=== PATIENT | male | born 1985 | race Caucasian/White ===

== ENCOUNTER 2022-01-17 04:22 | Emergency (ER) | payer SELFPAY ==
[2022-01-17 04:24] VITALS: BP 137/81; PULSE 75; RESP 20; TEMP 36.2; O2SAT 98; BMI 26.6
[2022-01-17 05:06] VITALS: BP 149/88; PULSE 79; RESP 20; O2SAT 99
--- NOTE | 2022-01-17 05:44 | ED_ITS ---
HPI - Dental/Oral General Chief complaint: Dental/Oral Stated complaint: Dental pain Time Seen by Provider: 01/17/22 05:43 Source: patient Mode of arrival: ambulatory Limitations: no limitations History of Present Illness HPI Narrative: Patient with dental caries been having more pain and left 1st lower molar with facial swelling for last few days no fever no chills patient able to open his mouth planning to see a dentist soon Related Data Previous Rx's Medication Instructions Recorded amoxicillin 875 mg-potassium 1 tab PO BID #20 tabs 01/17/22 clavulanate 125 mg tablet ibuprofen 600 mg tablet 600 mg PO Q6H PRN fever or pain 01/17/22 #30 tabs Allergies Allergy/AdvReac Type Severity Reaction Status Date / Time No Known Allergies Allergy Verified 01/17/22 04:36 Review of Systems Review of Systems: Yes all other systems are reviewed and are negative [facility] Social History Social History Smoked in Last 30 Days: Yes Use of substances other than those prescribed or required for medical reasons: No Advance Directives: No Advance Directives Information Provided: Yes Physical Exam Vital Signs: Vital Signs: Last Vital Signs Temp 97.2 F 01/17/22 04:24 Pulse 79 01/17/22 05:06 Resp 20 01/17/22 05:06 BP 149/88 H 01/17/22 05:06 Pulse Ox 99 01/17/22 05:06 O2 Del Method 01/17/22 05:06 BMI result Body Mass Index 26.6 Appearance: Alert. Oriented X3. No acute distress. ENT: Pharynx normal. Oral Mucosa moist swelling of left cheek with deep cavity in lower 1st molar Neck: Normal inspection. Neck supple. CVS: Normal heart rate and rhythm. Pulses normal. Respiratory: No respiratory distress. Equal air entry bilateral, no wheezing/rales/rhonchi HEENT: Teeth image: 1. Deep cavity with surrounding gum swelling tender to touch MDM - Dental/Oral MDM Narrative Medical decision making narrative: Patient with dental pulpitis of tooth number 19 with no signs of major abscess will discharge patient home on pain management and antibiotic advised to follow with dentist Differential Diagnosis Differential diagnosis: Likely dental caries and dental abscess Discharge Plan Discharge Clinical Impression: Dental caries Patient Disposition: Home, Self-Care Instructions: Toothache (ED) Additional Instructions: Take antibiotics as advised Pain medication as prescribed Follow with dentist Prescriptions: New ibuprofen 600 mg tablet 600 mg PO Q6H PRN (Reason: fever or pain) Qty: 30 0RF amoxicillin-pot clavulanate 875-125 mg tablet 1 tab PO BID Qty: 20 0RF
[2022-01-17] MEDS: Amoxicillin/Potassium Clav 875 MG TABLET PO (05:56)
[2022-01-17] MEDS: Ibuprofen 600 MG TABLET PO (06:00)
[2022-01-17] MEDS: traMADoL HCL 50 MG TABLET PO (06:00)
== END 2022-01-17 06:04 | disposition home or self-care (01) ==
PROVIDERS: Emergency Provider Internal Medicine
DX: K02.9 Dental caries, unspecified (principal); K08.89 Other specified disorders of teeth and supporting structures; Z79.899 Other long term (current) drug therapy
CPT/HCPCS: 99283; 99284

== ENCOUNTER 2022-05-26 16:48 | Emergency (ER) | payer SELFPAY ==
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
[2022-05-26 17:05] VITALS: BP 130/86; BP 138/87; PULSE 76; PULSE 87; RESP 18; TEMP 36.8; O2SAT 98; BMI 27.3
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
[2022-05-26 17:19] VITALS: BP 147/102; PULSE 89; RESP 16; TEMP 36.9; O2SAT 96
--- NOTE | 2022-05-26 17:20 | PC.NURSE ---
being seen by gymnastic coach now
[2022-05-26 17:34] LABS: MANUAL DIFF FLAG NO
[2022-05-26 17:39] LABS: Basophils Percent Auto 0.5 % (0-2); Eosinophils Absolute Auto 0.1 X10*3/uL (0.0-0.4); Eosinophils Percent Auto 1.6 % (0-4); Hematocrit 45.8 % (42.0-52.0); Hemoglobin 15.9 g/dl (14.0-18.0); Imm Gran Abs Auto 0.02 X10*3/uL (0.00-0.03); Imm Gran Pct Auto 0.2 % (0.0-0.4); Lymphocytes Percent Auto 23.7 % (20-40); Mean Corpuscular HGB Conc 34.7 g/dl (31.0-36.0); Mean Corpuscular Hemoglobin 30.2 pg (27.0-33.0); Mean Corpuscular Volume 86.9 fL (80.0-98.0); Mean Platelet Volume 8.6 fL (9.4-12.4); Monocytes Absolute Auto 0.7 X10*3/uL (0.1-1.2); Monocytes Percent Auto 8.6 % (2-11); Neutrophils Absolute Auto 5.4 x10*3/uL (2.0-8.3); Neutrophils Percent Auto 65.4 % (45-73); Platelet Count 273 X10*3/uL (160-400); Red Blood Count 5.27 X10*6/uL (4.60-5.80); Red Cell Distribution Width 12.3 % (11.0-16.0); White Blood Count 8.2 X10*3/uL (4.8-10.8)
[2022-05-26 17:47] LABS: COVID-19 Test Negative (Negative); IDNOW Serial# BCCEAD1C
[2022-05-26 17:58] LABS: Alanine Aminotransferase 12 U/L (0-40); Albumin Level 4.5 g/dL (3.5-5.0); Alkaline Phosphatase 104 U/L (39-117); Anion Gap 14 (12-20); Aspartate Amino Transferase 36 U/L (5-37); Bilirubin Total 0.4 mg/dL (0.0-1.0); Blood Urea Nitrogen 12 mg/dL (9-16); Calcium 9.7 mg/dL (8.4-10.2); Carbon Dioxide 30 mmol/L (22-29); Chloride 103 mmol/L (96-108); Creatinine Clr Calc Pharmacy 76.9; Estimated Glomerular Filt Rate > 60; Ethanol < 10 mg/dL; Glucose Random 106 mg/dL (60-115); Sodium 142 mmol/L (135-145); Total Protein 7.6 g/dL (6.5-8.0)
[2022-05-26 18:09] LABS: Acetaminophen LAB < 17 mcg/mL (<30); Salicylate < 5.0 mg/dL (15-30)
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
--- NOTE | 2022-05-26 21:42 | MHC.RECOVSUP ---
? Reason for consult:Recovery Support o Current location: [facility] [place]? o Identified substance use concern: AUD? - Support ? ?Intervention: o Community resources provided o Harm reduction discussion ? Plan: o Referral to [facility] o Follow up tomorrow , referral for MAT ? Additional information: transition coach connected with pt. Harm reduction strategies was discussed and referral was submitted for CCC and tissue recovery technician sercices with [facility]. Recovery Support team to follow up with pt tomorrow.
== END 2022-05-26 21:54 | disposition home or self-care (01) ==
PROVIDERS: Physician Assistant Medical; Emergency Provider Student in an Organized Health Care Education/Training Program
DX: R51.9 Headache, unspecified (principal); M54.2 Cervicalgia; R07.89 Other chest pain; Z20.822 Contact with and (suspected) exposure to COVID-19; Z20.828 Contact with and (suspected) exposure to other viral communicable diseases; Z79.899 Other long term (current) drug therapy
CPT/HCPCS: 36415; 70450; 71046; 72125; 80053; 80143; 80179; 82077; 85025; 87635; 99282; 99283; 99284

== ENCOUNTER 2022-08-15 09:46 | Emergency (ER) | payer MEDICAID, SELFPAY ==
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
[2022-08-15 09:51] VITALS: BP 140/90; PULSE 90; RESP 20; TEMP 37.7; O2SAT 98; BMI 27.3
[2022-08-15 09:59] VITALS: BP 118/69; PULSE 93; RESP 17; TEMP 36.6; O2SAT 98
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
[2022-08-15] MEDS: Acetaminophen 325 MG TABLET 975 MG PO (11:07)
[2022-08-15] MEDS: Bacitracin Oint 14 GM TUBE 1 APPL TOPICAL (12:14)
--- NOTE | 2022-08-15 12:20 | PC.NURSE ---
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
[2022-08-15 12:28] VITALS: BP 134/91; PULSE 77; RESP 16; TEMP 36.6; O2SAT 97
== END 2022-08-15 13:35 | disposition home or self-care (01) ==
PROVIDERS: Emergency Provider Emergency Medicine Emergency Medical Services
DX: S02.2XXA Fracture of nasal bones, initial encounter for closed fracture (principal); S01.511A Laceration without foreign body of lip, initial encounter; S00.212A Abrasion of left eyelid and periocular area, initial encounter; S00.211A Abrasion of right eyelid and periocular area, initial encounter; S00.81XA Abrasion of other part of head, initial encounter; S50.312A Abrasion of left elbow, initial encounter; S60.811A Abrasion of right wrist, initial encounter; S60.511A Abrasion of right hand, initial encounter; S70.211A Abrasion, right hip, initial encounter; S40.211A Abrasion of right shoulder, initial encounter; S80.212A Abrasion, left knee, initial encounter; S80.211A Abrasion, right knee, initial encounter; V18.0XXA Pedal cycle driver injured in noncollision transport accident in nontraffic accident, initial encounter; Y93.55 Activity, bike riding; Y92.414 Local residential or business street as the place of occurrence of the external cause; Y99.9 Unspecified external cause status
CPT/HCPCS: 70450; 70486; 72125; 73070; 99284

== ENCOUNTER 2022-09-06 11:15 | Emergency (ER) | payer MEDICAID, SELFPAY ==
--- NOTE | ~2022-09-06 | XR_ITS ---
EXAMINATION: XR ELBOW, LEFT CLINICAL INFORMATION: Fall COMPARISON: None available. TECHNIQUE: AP, lateral, and oblique views of the left elbow. FINDINGS: There is a nondisplaced radial head fracture. There is a lucency seen on the lateral view projecting over the anterior proximal ulna near the coronoid process and anterior humeral condyle. This is not appreciated on the other 2 views. Joint spaces are normal. There is a small joint effusion. There is diffuse soft tissue swelling. XR/XR elbow LT 2V IMPRESSION: Nondisplaced radial head fracture. Lucency seen on the lateral view projecting over the anterior proximal ulna near the coronoid and anterior humeral condyle. This is not appreciated on other view. It is uncertain whether this could represent a nondisplaced fracture or is due to overlapping bone. Findings could be better evaluated with CT if clinically indicated.
[2022-09-06 11:23] VITALS: BP 143/72; PULSE 83; RESP 16; TEMP 36.4; O2SAT 97; BMI 26.7
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
[2022-09-06] MEDS: Ibuprofen 600 MG TABLET PO (13:48)
[2022-09-06] MEDS: Acetaminophen 325 MG TABLET 650 MG PO (13:49)
== END 2022-09-06 13:56 | disposition home or self-care (01) ==
PROVIDERS: Emergency Provider Emergency Medicine
DX: S52.125A Nondisplaced fracture of head of left radius, initial encounter for closed fracture (principal); X58.XXXA Exposure to other specified factors, initial encounter; Y93.9 Activity, unspecified; Y92.9 Unspecified place or not applicable; Y99.9 Unspecified external cause status; L08.89 Other specified local infections of the skin and subcutaneous tissue; Z76.0 Encounter for issue of repeat prescription
CPT/HCPCS: 73070; 87070; 87077; 87186; 87205; 99283; 99284

== ENCOUNTER 2023-06-12 06:19 | Emergency (ER) | payer MEDICAID, SELFPAY ==
[2023-06-12 06:24] VITALS: BP 121/84; PULSE 71; RESP 18; TEMP 36.7; O2SAT 100; BMI 25.0
--- NOTE | 2023-06-12 07:15 | ED_ITS ---
HPI - Back Pain/Injury General Chief Complaint: Abdominal Pain Stated Complaint: gen med Time Seen by Provider: 06/12/23 06:54 Source: patient Mode of arrival: ambulatory Limitations: no limitations History of Present Illness HPI Narrative: Patient is a 37-year-old male who presents to the emergency department for evaluation of left mid back pain. He reports it began 2 days ago, initially was constant in onset which he noticed while at work. Denies doing any heavy lifting or moving that would have aggravated the pain. Over the past day the pain has become more intermittent and is made worse with movement, bending, movement of the left arm, and deep inspiration. When asked he does additionally report a mild dysuria that is experienced only with the 1st urination in the morning. He states that this ?happens from time to time?. But he has noticed it is well the past 2 days. Denies recent precipitating injury, fevers, chills, burning with micturition, urinary frequency/urgency/hesitancy, bladder or bowel dysfunction, numbness or tingling of the perineum or bilateral legs, shortness of breath, difficulty breathing, cough. Denies any recent surgical procedures, any known immune compromising conditions, personal history of cancer, or IV drug usage. MD elicited complaint: back pain Related Data Previous Rx's ?Medication ?Instructions ?Recorded amoxicillin 875 mg-potassium 1 tab PO BID #20 tabs 01/17/22 clavulanate 125 mg tablet ibuprofen 600 mg tablet 600 mg PO Q6H PRN fever or pain 01/17/22 #30 tabs amoxicillin 875 mg-potassium 1 tab PO BID #14 tabs 08/15/22 clavulanate 125 mg tablet cephalexin 500 mg capsule 500 mg PO QID #28 caps 09/06/22 doxycycline hyclate 100 mg capsule 100 mg PO BID #14 caps 09/06/22 ibuprofen 600 mg tablet 600 mg PO Q6H PRN pain #30 tabs 09/06/22 cyclobenzaprine 10 mg tablet 10 mg PO TID PRN muscle spasm #20 06/12/23 tabs ibuprofen 600 mg tablet 600 mg PO Q8H PRN pain #30 tabs 06/12/23 Allergies Allergy/AdvReac Type Severity Reaction Status Date / Time No Known Allergies Allergy Verified 06/12/23 06:25 Review of Systems 2 Review of Systems: Yes all other systems are reviewed and are negative PMFSH Past Medical History Attestation statement: The following information was validated with the patient. Source: old records reviewed Social History Social History Advance Directives: No Advance Directives Information Provided: No Physical Exam 2 Vital Signs: Vital Signs: Last Vital Signs Temp 98.2 F 06/12/23 08:17 Pulse 68 06/12/23 08:17 Resp 18 06/12/23 08:17 BP 124/80 06/12/23 08:17 Pulse Ox 99 06/12/23 08:17 O2 Del Method Room Air 06/12/23 08:17 BMI result Body Mass Index 25.0 Appearance: Alert.?Oriented to person, place and time. No acute distress.?Normal affect. Eyes: Pupils equal, round and reactive to light.? ENT: Pharynx normal.?? Neck: Normal inspection.? Neck supple.?? CVS: Heart sounds normal. Normal heart rate and rhythm.? Pulses normal; bilateral radial pulses 2+, bilateral posterior tibial/dorsalis pedis pulses 2+.? Respiratory: No respiratory distress.? Lung sounds clear to auscultation bilaterally?? Abdomen: Soft and non-tender. Normoactive bowel sounds. No pulsatile mass.?? Skin: Skin warm and dry.? Normal skin color.? Normal skin turgor.?? Extremities: No lower extremity edema.? No calf ttp? Back: + mild paraspinal/ trapezius muscular tenderness from approximately T9-L2 on the left. No CVA tenderness. No midline spinal tenderness, step-off's, or deformity. Full ROM intact in bilateral lower extremities. Straight leg test negative on right; Straight leg test negative on left. No rashes, lesions, areas of induration or fluctuance, or signs of infection noted., Neuro: Moves all extremities spontaneously. 5/5 strength in hip extension/flexion, abduction, adduction. Sensation to light touch intact bilaterally. Patellar and Achilles reflex 2+ bilaterally. No ataxia, gait normal and steady.. No focal neuro deficits. Course Reevaluation(s) Reevaluation #1: Patient reports some improvement in pain with Toradol. States he is able to get, lying to sitting position with left urinalysis is without evidence of infection or microscopic hematuria. He denies any history of nephrolithiasis, and based on the location and exacerbation of his pain I have a lower suspicion for renal pathology. Patient does admit that he exercises 5 days a week, and thinks that he possibly may have overdone it. At this time feel that pain is most consistent with muscular etiology although can not completely exclude herniated disc, no focal neurological deficits, clinically have low suspicion for spinal fracture, spinal infection, would defer CT imaging at this time. Will trial management at home with acetaminophen/ibuprofen in addition to a muscle relaxer. Advised outpatient follow-up with primary care provider. Discussed worrisome signs and symptoms that would warrant re-evaluation in the emergency department. All questions answered. Stable for discharge. Time: 07:57 Medications Administered Discontinued Medications Generic Name Dose Route Start Last Admin Trade Name Freq PRN Reason Stop Dose Admin Ketorolac Tromethamine 30 mg 06/12/23 07:14 06/12/23 07:33 Ketorolac Tromethamine 30 Mg/Ml Vial IM 06/12/23 07:15 30 mg ONCE ONE Administration Medical Decision Making Medical Decision Making [facility] Narrative: Patient is a 37-year-old male who presents emergency department for evaluation of left back pain. Has notable tenderness from the T9-L2 region upon palpation and with movement of the left upper extremity. Concern at this time for muscular etiology versus renal colic secondary to nephrolithiasis/ureteral calculi, have lower suspicion for pyelonephritis. Will obtain serum labs in addition to urinalysis and trial pain management with Toradol. Differential Diagnosis Differential Diagnoses: The differential diagnosis associated with the presentation includes ( see narrative above) Admission/Observation Consideration of admission/observation: Escalation of care including admission/observation considered ( see narrative above) Lab Data [facility] Lab Attestation statement: I reviewed the patient's lab results. 06/12/23 07:22 06/12/23 07:22 Labs: Lab Results 06/12/23 Range/Units 07:22 WBC 4.7 L (4.8-10.8) X10*3/uL RBC 4.97 (4.60-5.80) X10*6/uL Hgb 14.9 (14.0-18.0) g/dl Hct 43.6 (42.0-52.0) % MCV 87.7 (80.0-98.0) fL MCH 30.0 (27.0-33.0) pg MCHC 34.2 (31.0-36.0) g/dl RDW 12.3 (11.0-16.0) % Plt Count 242 (160-400) X10*3/uL MPV 9.2 L (9.4-12.4) fL Immature Gran % (Auto) 0.2 (0.0-0.4) % Neut % (Auto) 45.1 (45-73) % Lymph % (Auto) 40.0 (20-40) % [place] % (Auto) 10.8 (2-11) % Eos % (Auto) 3.0 (0-4) % Baso % (Auto) 0.9 (0-2) % Lymph # (Auto) 1.9 (1.2-4.9) X10*3/uL [place] # (Auto) 0.5 (0.1-1.2) X10*3/uL Eos # (Auto) 0.1 (0.0-0.4) X10*3/uL Baso # (Auto) 0.0 (0.0-0.2) X10*3/uL Abs Immat Gran (auto) 0.01 (0.00-0.03) X10*3/uL Absolute Neuts (auto) 2.1 (2.0-8.3) x10*3/uL Absolute Nucleated RBC 0.000 (0.0-0.012) X10*3/uL Nucleated RBC % (auto) 0.0 (0.0-0.2) /100WBC Sodium 140 (135-145) mmol/L Potassium 4.1 (3.3-5.1) mmol/L Chloride 105 (96-108) mmol/L Carbon Dioxide 27 (22-29) mmol/L Anion Gap 12 (12-20) BUN 18 H (9-16) mg/dL Creatinine 1.15 (0.5-1.4) mg/dL Estim Creat Clear Calc 88.8 Estimated GFR > 60 Random Glucose 62 (60-115) mg/dL Calcium 9.4 (8.4-10.2) mg/dL Total Bilirubin 0.5 (0.0-1.0) mg/dL AST 17 (5-37) U/L ALT 10 (0-40) U/L Alkaline Phosphatase 86 (39-117) U/L Total Protein 7.0 (6.5-8.0) g/dL Albumin 3.9 (3.5-5.0) g/dL Urine Color Yellow Urine Appearance Clear Urine pH 6.0 (5.0-9.0) Ur Specific [place] 1.025 (1.005-1.025) Urine Protein Negative (Neg-Trace) mg/dL Urine Glucose (UA) Negative (Negative) mg/dL Urine Ketones Negative (Negative) mg/dL Urine Blood Negative (Negative) Urine Nitrite Negative (Negative) Ur Leukocyte Esterase Negative (Negative) Urine RBC 0-2 (0-2) /HPF Urine WBC 0-5 (0-5) /HPF Ur Squamous Epith Cells 0-2 (0-2) /HPF Urine Bacteria None Seen (None Seen) Hyaline Casts 0-2 (0-2) /LPF External Record Review External record reviewed: Outpatient record Prescription Management I considered prescription management with: Pain Medication Discharge Plan Discharge Clinical Impression: Back pain Patient Disposition: Home, Self-Care Instructions: Back Pain (ED) Additional Instructions: You can take ibuprofen 200 mg, 3 tablets (600mg) every 6-8 hours as needed for pain, in addition to Tylenol 500 mg, 2 tablets (1,000mg) every 4-6 hours as needed for pain, but not to exceed 3 doses daily (3,000mg).? For pain that is unrelieved by ibuprofen/acetaminophen. I have sent a prescription for a muscle relaxer to your pharmacy. Cyclobenzaprine/Flexeril. You may take this 3 times daily/every 8 hours, however this medication may make you drowsy. Please take it for the 1st time in the evening before bedtime or when you were able to remain home for the day. Do not drive, drink alcohol, or work while taking this medication. Please follow-up with your primary care provider. You may return back to emergency department any new or worsening symptoms or concerns. Prescriptions: New cyclobenzaprine 10 mg tablet 10 mg PO TID PRN (Reason: muscle spasm) Qty: 20 0RF ibuprofen 600 mg tablet 600 mg PO Q8H PRN (Reason: pain) Qty: 30 0RF No Action ibuprofen 600 mg tablet 600 mg PO Q6H PRN (Reason: fever or pain) Qty: 30 0RF amoxicillin-pot clavulanate 875-125 mg tablet 1 tab PO BID Qty: 20 0RF amoxicillin-pot clavulanate 875-125 mg tablet 1 tab PO BID Qty: 14 0RF doxycycline hyclate 100 mg capsule 100 mg PO BID Qty: 14 0RF cephalexin 500 mg capsule 500 mg PO QID Qty: 28 0RF ibuprofen 600 mg tablet 600 mg PO Q6H PRN (Reason: pain) Qty: 30 0RF Referrals: [facility] [Primary Care Provider] - Interventions: ED Discharge Assessment Last Done: 06/12/23 08:17 Discharge Date/Time: 06/12/23 08:17 Print Language: Choose Not To Answer
[2023-06-12 07:27] LABS: MANUAL DIFF FLAG NO
[2023-06-12] MEDS: Ketorolac Tromethamine 30 MG/ML VIAL IM (07:33)
[2023-06-12 07:34] LABS: Basophils Percent Auto 0.9 % (0-2); Eosinophils Absolute Auto 0.1 X10*3/uL (0.0-0.4); Hematocrit 43.6 % (42.0-52.0); Hemoglobin 14.9 g/dl (14.0-18.0); Imm Gran Abs Auto 0.01 X10*3/uL (0.00-0.03); Imm Gran Pct Auto 0.2 % (0.0-0.4); Lymphocytes Absolute Auto 1.9 X10*3/uL (1.2-4.9); Mean Corpuscular HGB Conc 34.2 g/dl (31.0-36.0); Mean Corpuscular Volume 87.7 fL (80.0-98.0); Mean Platelet Volume 9.2 fL (9.4-12.4); Monocytes Absolute Auto 0.5 X10*3/uL (0.1-1.2); Monocytes Percent Auto 10.8 % (2-11); Neutrophils Absolute Auto 2.1 x10*3/uL (2.0-8.3); Neutrophils Percent Auto 45.1 % (45-73); Platelet Count 242 X10*3/uL (160-400); Red Blood Count 4.97 X10*6/uL (4.60-5.80); Red Cell Distribution Width 12.3 % (11.0-16.0); White Blood Count 4.7 X10*3/uL (4.8-10.8)
[2023-06-12 07:38] LABS: Appearance Urine Clear; Color Urine Yellow; Glucose Urine UA Negative (Negative); Leukocyte Esterase Urine Negative (Negative); Nitrite Urine Negative (Negative); Specific Gravity - Urine 1.025 (1.005-1.025); Urine Blood Negative (Negative); Urine Ketones Negative (Negative); Urine Protein Negative (Neg-Trace)
[2023-06-12 07:43] LABS: Bacteria Urine None Seen (None Seen); Hyaline Casts Urine 0-2 /LPF (0-2); RBC Urine 0-2 /HPF (0-2); Squamous Epithelial Cell Urine 0-2 /HPF (0-2); WBC Urine 0-5 /HPF (0-5)
[2023-06-12 07:46] LABS: Alanine Aminotransferase 10 U/L (0-40); Albumin Level 3.9 g/dL (3.5-5.0); Alkaline Phosphatase 86 U/L (39-117); Anion Gap 12 (12-20); Aspartate Amino Transferase 17 U/L (5-37); Bilirubin Total 0.5 mg/dL (0.0-1.0); Blood Urea Nitrogen 18 mg/dL (9-16); Calcium 9.4 mg/dL (8.4-10.2); Carbon Dioxide 27 mmol/L (22-29); Chloride 105 mmol/L (96-108); Creatinine Clr Calc Pharmacy 88.8; Estimated Glomerular Filt Rate > 60; Glucose Random 62 mg/dL (60-115); Potassium 4.1 mmol/L (3.3-5.1); Sodium 140 mmol/L (135-145)
[2023-06-12 08:17] VITALS: BP 124/80; PULSE 68; RESP 18; TEMP 36.8; O2SAT 99
== END 2023-06-12 08:17 | disposition home or self-care (01) ==
PROVIDERS: Emergency Provider Student in an Organized Health Care Education/Training Program
DX: M54.9 Dorsalgia, unspecified (principal); R30.0 Dysuria
CPT/HCPCS: 36415; 80053; 81001; 85025; 96372; 99284; J1885

== ENCOUNTER → 2024-10-05 12:57 | Outpatient (BNVA) | payer SELFPAY | PROVIDERS: Visit Provider Physician Assistant Medical | DX: Z02.79 Encounter for issue of other medical certificate (principal) ==

== ENCOUNTER 2024-10-08 20:30 | Emergency (ER) | payer SELFPAY ==
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
[2024-10-08 20:36] VITALS: BP 132/72; PULSE 72; RESP 16; TEMP 36; O2SAT 100; BMI 27.1
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
--- OUTSIDE RECORDS SUMMARY | 2024-10-08 21:01 | XMS_ITS | Clinical Summary ---
Author Organization [facility] Address [address] [address] Phone Care Team Providers Care Automotive Tire Worker Name Role Phone Pcp, Unknown Primary Care Provider Unavailabl e Allergies No known active allergies Medications No known medications Social History Tobacco Use Types Packs/Day Years Used Date Smoking Tobacco: Never Assessed Education Answer Date Recorded Are you interested in more education? Not on jose e 11/18/2023 Are you concerned about learning? Not on file 11/18/2023 No 11/18/2023 No 11/18/2023 Digital Access Answer Date Recorded No 11/18/2023 No 11/18/2023 Reliable internet access at home? Not on file 11/18/2023 Device with a working camera? Not on file Sex and Gender Information Value Date Recorded Sex Assigned at Not on file Legal Sex Male 12:49 PM EDT Gender Identity Not on file Sexual Orientation Not on file Last Filed Vital Signs Vital Sign Reading Time Taken Comments Blood Pressure 122/80 11/23/2023 10:20 AM EDT Pulse 68 11/23/2023 10:20 AM EDT Temperature - - Respiratory Rate 16 11/23/2023 10:20 AM EDT Oxygen Saturation 99% 11/23/2023 10:20 AM EDT Inhaled Oxygen Concentration - - Weight 78 kg (172 lb) 11/23/2023 10:20 AM EDT Height 175.3 cm (5' 9 ) 11/23/2023 10:20 AM EDT Body Mass Index 25.4 11/23/2023 10:20 AM EDT Plan of Treatment Health Maintenance Due Date Last Done Comments Adult Td,Tdap Booster 1986 LIPID PANEL 1986 DEPRESSION SCREENING 1998 SMOKING Hx and SMOKELESS TOB ACCO SCREENING 11/27/1999 HEPATITIS C SCREENING 2004 HIV ONE-TIME SCREENING (18-6 5 YEARS) 2004 SCREENING FOR DIABETES 2021 COVID-19 VACCINE (2023-2 5 season) 2023 HEPATITIS A VACCINES Aged Out No long er eligible based on patient's age to complete this topic HIB VACCINES Aged Out No longer eligi ble based on patient's age to complete this topic MENINGOCOCCAL VACCINES (ACWY) Aged Out No longer eligible based on patient's age to complete this topic MENINGOCOCCAL VACCINES (B) Aged Out N o longer eligible based on patient's age to complete this topic PNEUMOCOCCAL VACCINES (0-49 years) Aged Out No longer eligible based on patient's age to complete this topic Medical Devices Not on file Insurance [employer] PPO [employer] PPO [employer] PPO [employer] PPO [employer] [place] [address] [place] [address] PPO Care Teams Automotive Tire Worker Relationship Specialty Start Date End Date Pcp, Unknown PCP - General 11/18/23 Additional Source Comments The information contained in this document represents components of the legal health record. It is not the complete legal health record.[facility]
--- OUTSIDE RECORDS SUMMARY | 2024-10-08 21:01 | XMS_ITS | Clinical Summary ---
Author Organization [employer] Address [address] [place] [address] Care Team Providers Care Hair Specialist Name Role Phone Sabra Tapia MD Primary Care Pro vider Allergies No known active allergies Medications No known medications Active Problems Problem Noted Date Diagnosed Date Health care maintenance 12/15/2022 Tobacco use 12/15/2022 Neck pain 12/15/2022 Overweight (BMI 25.0-29.9) 12/15/2022 Family History Medical History Relation Name Comments DM2 Mother Relation Name Status Comments Mother Social History Tobacco Use Types Packs/Day Years Used Date Smoking Tobacco: Former Cigarettes Smokeless Tobacco: Former Comments:Started smoking 17 y of age ,stopped for 2 years ,and currently smokes every 3 days -aprox 1 PQT in a week --( in averag as 3 cig in a day) before used to smoke 16 cig a day Alcohol Use Standard Drinks/Week Comments Yes 0 (1 standard drink = 0.6 oz pur e alcohol) Depression Answer Date Recorded Patient Health Questionnaire-9 Score 1 12/15/2022 Patient Health Questionnaire-9 Score 1 12/15/2022 Last PHQ-9: Questionnaire Data Not on file 1 Housing Stability Answer Date Recorded What is your housing situation today? I have dorota jacki 12/08/[address] you li ve. Do you have problems with any of the following? None of the above 12/08/2022 Food Insecurity Answer Date Recorded Within the past 12 months, y ou worried that your food would run out before you got money to buy more: Never True 12/08/2022 Within the past 12 months,th e food you bought just didn't last and you didn't have enough money to get more: Never True Transportation Answer Date Recorded In the past 12 months, has l ack of transportation kept you from medical appts, meetings, work or from getting things needed for daily living? No 12/08/2022 Utilities Answer Date Recorded In the past 12 months, has t he electric, gas, oil or water company threatened to shut off services in your home? No 12/08/2022 Depression Answer Date Recorded Patient Health Questionnaire-2 Score 0 12/15/2022 Sex and Gender Information Value Date Recorded Sex Assigned at Male 04/30/2022 12:13 PM EDT Legal Sex Male 12:11 PM EDT Gender Identity Male 04/30/2022 12:13 PM EDT Sexual Orientation Straight 04/30/2022 12 :13 PM EDT Last Filed Vital Signs Vital Sign Reading Time Taken Comments Blood Pressure 131/86 12/15/2022 1:38 PM EDT Pulse 70 12/15/2022 1:38 PM EDT Temperature 36.5 C (97.7 F) 09/29/2022 1:07 PM EDT Respiratory Rate 16 09/29/2022 1:07 PM EDT Oxygen Saturation 98% 12/15/2022 1:38 PM EDT Inhaled Oxygen Concentration - - Weight 86.3 kg (190 lb 3.2 oz) 12/15/2022 1:38 P M EDT Height 175.3 cm (5' 9 ) 12/15/2022 1:38 PM EDT Body Mass Index 28.09 12/15/2022 1:38 PM EDT Plan of Treatment Health Maintenance Due Date Last Done Comments Dental Oral Exam 1986 Dental Prophylaxis 1986 Dental X-Ray: Bitewings 1986 Dental X-Ray: Full Mouth 1986 HIV Screening 1986 Lipid Panel 1986 Disability Screening 1986 Alcohol/Substance Use Screening 1998 Family Planning (PISQ) 2001 HPV Vaccines (1 - Male 3-dos e series) 2001 Hepatitis C Screening 2004 DTaP/Tdap/Td Vaccines (1 - Tdap) 2005 Hepatitis A Vaccines (1 of 2 - Risk 2-dose series) 2005 Hepatitis B Vaccines (1 of 3 - 19+ 3-dose series) 2005 COVID-19 Vaccine ( - 2023-2 5 season) 2023 SDOH Screening 12/09/2023 12/08/2022 Depression Screening 12/16/2023 12/15/2022, 12/15/2022 Tobacco Screening 12/16/2023 12/15/2022 Influenza Vaccine (#1) 2024 Zoster Vaccines (1 of 2) 2036 RSV Patients and Patients Aged 60 years or older (1 - 1-dose 75+ series) 2061 HIB Vaccines Aged Out No longer eligi ble based on patient's age to complete this topic IPV Vaccines Aged Out No longer eligi ble based on patient's age to complete this topic Meningococcal B Vaccine Aged Out No l onger eligible based on patient's age to complete this topic Meningococcal Vaccine Aged Out No yocasta betina eligible based on patient's age to complete this topic Pneumococcal Vaccine: Pediatrics (0 to 5 Years) and At-Risk Patients (6 to 49) Years Aged Out No longer eligible b ased on patient's age to complete this topic RSV under 20 months Aged Out No longe r eligible based on patient's age to complete this topic Rotavirus Vaccines Aged Out No longer eligible based on patient's age to complete this topic Insurance [facility] [address] [place] [id number] [place] [id number] [place] [id number] Care Teams Hair Specialist Relationship Specialty Start Date End Date Sabra Tapia MD [address] [place] [id number] PCP - General Internal Medicine 01/30/23
--- NOTE | 2024-10-08 22:32 | PC.NURSE ---
pt medicated per MAR, pt pending additional clavicle imaging
[2024-10-08 23:24] VITALS: BP 132/72; PULSE 72; RESP 16; TEMP 36; O2SAT 100
== END 2024-10-08 23:25 | disposition home or self-care (01) ==
PROVIDERS: Emergency Provider Emergency Medicine
DX: S42.002A Fracture of unspecified part of left clavicle, initial encounter for closed fracture (principal); V00.841A Fall from standing electric scooter, initial encounter; Y93.89 Activity, other specified; Y92.488 Other paved roadways as the place of occurrence of the external cause; Y99.8 Other external cause status
CPT/HCPCS: 70450; 71045; 72125; 73000; 99283; 99284

== ENCOUNTER → 2024-10-08 20:38 | Outpatient (BNV) | payer SELFPAY | PROVIDERS: Visit Provider Radiology Diagnostic Radiology | DX: S09.90XA Unspecified injury of head, initial encounter (principal); R07.89 Other chest pain; S42.025A Nondisplaced fracture of shaft of left clavicle, initial encounter for closed fracture; V00.141A Fall from scooter (nonmotorized), initial encounter | CPT/HCPCS: 70450; 71045; 72125; 73000 ==

== ENCOUNTER 2024-10-12 09:12 | Emergency (ER) | payer MEDICAID, SELFPAY ==
[2024-10-12 09:22] VITALS: BP 141/66; PULSE 72; RESP 18; TEMP 36.8; O2SAT 99; BMI 26.3
[2024-10-12 10:13] VITALS: BP 116/86; PULSE 70; RESP 19; TEMP 36.6; O2SAT 100
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
--- OUTSIDE RECORDS SUMMARY | 2024-10-12 11:09 | XMS_ITS | Clinical Summary ---
Author Organization [facility] Address [address] [address] Phone Care Team Providers Care Plant Maintenance Worker Name Role Phone Pcp, Unknown Primary [...] topic Medical Devices Not on file Insurance [employer] PPO [employer] PPO [employer] PPO [employer] PPO [employer] [place] [address] [address] PPO Care Teams Plant Maintenance Worker Relationship Specialty Start Date End Date Pcp, Unknown PCP - General 11/18/23 Additional Source Comments The information contained in this document represents components of the legal health record. It is not the complete legal health record.[facility]
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
--- OUTSIDE RECORDS SUMMARY | 2024-10-12 11:09 | XMS_ITS | Encounter Summary ---
Author Organization [employer] Address [address] [place] [address] Care Team Providers Care Equipment Driver Name Role Phone Sabra Tapia MD Primary Care Pro vider Encounter Details Date Type Department Care Team (Late st Contact Info) Description 10/08/2024 Orders Only [facility] External Provider, [facility] Social History Tobacco Use Types Packs/Day Years [...] Orientation Straight 04/30/2022 12 :13 PM EDT documented as of this encounter Plan of Treatment Not on file documented as of this encounter Procedures Procedure Name Priority Date/Time Associated Diagnosis Comments XR CHEST 1 VIEW Routine 10/08/2024 10:[address] HEAD WO CONTRAST Routine 10/08/2024 1 0:[address] CERVICAL SPINE WO CONTRAST Routine 10/08/2024 10:16 PM EDT XR CLAVICLE LEFT Routine 10/08/2024 9:35 PM EDT documented in this encounter Results * XR Chest 1 View (10/08/2024 10:55 PM EDT) Anatomical Region Laterality Modality Chest Radiographic Anai ging 10/08/2024 10:5 5 PM EDT Narrative 10/08/2024 10:56 PM EDT [place] [address] XRay Report Signed Patient: Devin Waldrop MR#: MM [id number] : 1985 Acct:[id number] Age/Sex: 38 / M ADM Date: 10/08/24 Loc: .ED Attending Dr: Ordering Physician: Peri Rodríguez Date of Service: 10/08/24 Procedure(s): XR chest 1V Accession Number(s): [id number] cc: Peri Rodríguez; [facility] CLINICAL HISTORY: trauma Exam: AP portable [...] in OV> 10/08/242255 DD/ 54 TD/TT: 10/08/242254 Financial Business Analyst: Procedure Note Donotuseinterpreter, Image - 10/08/2024 [place] [address] XRay Report Signed Patient: Devin Waldrop MMR#: [id number] : 1985Acct:[id number] Age/Sex: 38 / MADM Date: 10/08/24 Loc: .ED Attending Dr: Ordering Physician: Peri Rodríguez Date of Service: 10/08/24 Procedure(s): XR chest 1V Accession Number(s): [id number] cc: Peri Rodríguez; [facility] CLINICAL HISTORY: trauma Exam: AP portable [...] in OV> 10/08/242255 DD/ 54 TD/TT: 10/08/242254 Financial Business Analyst: [facility] External Provider IMG XR PROCEDURES Edited Result - Final * CT Head w/o Contrast (10/08/2024 10:19 PM EDT) Anatomical Region Laterality Modality Head, Neck Computed Tomogra phy 10/08/2024 10:1 9 PM EDT Narrative 10/08/2024 10:20 PM EDT [place] [address] CT Scan Report Signed Patient: Devin Waldrop MR#: MM [id number] : 1985 Acct:[id number] Age/Sex: 38 / M ADM Date: 10/08/24 Loc: HO.ED Attending Dr: Ordering Physician: Lizet Acevedo Date of Service: 10/08/24 Procedure(s): CT head/brain wo IV con Accession Number(s): [id number] cc: [facility]; Lizet Acevedo Report Number: [id number]: Total DLP = 760.00 mGy-cm CLINICAL HISTORY: [...] MD in OV> 10/08/242219 DD/ 18 TD/TT: 08/23/25 2219 Financial Business Analyst: Procedure Note Donotuseinterpreter, Image - 10/08/[address] [address] [address] Scan Report Signed Patient: Devin Waldrop [facility]#: [id number] : 1985Acct:[id number] Age/Sex: 38 / MADM Date: 10/08/24 Loc: HO.ED Attending Dr: Ordering Physician: Lizet Acevedo Date of Service: 10/08/24 Procedure(s): CT head/brain wo IV con Accession Number(s): [id number] cc: [facility]; Lizet Acevedo Report Number: [id number]: Total DLP = 760.00 mGy-cm CLINICAL HISTORY: [...] by Jose R Hodge MD in OV> 10/08/240 DD/ 18 TD/TT: 10/08/242218 Financial Business Analyst: us [facility] External Provider IMG CT PROCEDURES Edited Result - Final * CT Cervical Spine w/o Contrast (10/08/2024 10:16 PM EDT) Anatomical Region Laterality Modality Spine, C-spine Computed Tomogra phy 10/08/2024 10:1 6 PM EDT Narrative 10/08/2024 10:17 PM EDT [address] [address] [address] Scan Report Signed Patient: Devin Waldrop MR#: [id number] : 1985 Acct:[id number] Age/Sex: 38 / M ADM Date: 10/08/24 Loc: HO.ED Attending Dr: Ordering Physician: Lizet Acevedo Date of Service: 10/08/24 Procedure(s): CT cervical spine wo IV con Accession Number(s): [id number] cc: [facility]; Lizet Acevedo Report Number: [id number]: Total DLP = 494.00 mGy-cm CLINICAL HISTORY: [...] in OV> 10/08/242216 DD/ 15 TD/TT: 10/08/242215 Financial Business Analyst: Procedure Note Donotuseinterpreter, Image - 10/08/[address] [place] [address] [address] Scan Report Signed Patient: Devin Waldrop MMR#: [id number] : 1985Acct:[id number] Age/Sex: 38 / MADM Date: 10/08/24 Loc: HO.ED Attending Dr: Ordering Physician: Lizet Acevedo Date of Service: 10/08/24 Procedure(s): CT cervical spine wo IV con Accession Number(s): [id number] cc: [facility]; Lizet Acevedo Report Number: [id number]: Total DLP = 494.00 mGy-cm CLINICAL HISTORY: [...] in OV> 10/08/242216 DD/ 15 TD/TT: 10/08/242215 Financial Business Analyst: [facility] External Provider IMG CT PROCEDURES Edited Result - Final * XR Clavicle Left (10/08/2024 9:35 PM EDT) Anatomical Region Laterality Modality Body, Clavicle Left Radiographic Anai ging 10/08/2024 9:35 PM EDT Narrative 10/08/2024 9:36 PM EDT [place] [address] XRay Report Signed Patient: Devin Waldrop MR#: [id number] : 1985 Acct:[id number] Age/Sex: 38 / M ADM Date: 10/08/24 Loc: HO.ED Attending Dr: Ordering Physician: Lizet Acevedo Date of Service: 10/08/24 Procedure(s): XR clavicle LT Accession Number(s): [id number] cc: [facility]; Lizet Acevedo CLINICAL HISTORY: fall off [...] in OV> 10/08/242135 DD/ 34 TD/TT: 10/08/242134 Financial Business Analyst: Procedure Note Alanna Puri - 10/08/[address] [address] XRay Report Signed Patient: Devin Waldrop [facility]#: [id number] : 1985Acct:[id number] Age/Sex: 38 / MADM Date: 10/08/24 Loc: .ED Attending Dr: Ordering Physician: Lizet Acevedo Date of Service: 10/08/24 Procedure(s): XR clavicle LT Accession Number(s): [id number] cc: [facility]; Lizet Acevedo CLINICAL HISTORY: fall off [...] in OV> 10/08/242135 DD/ 34 TD/TT: 10/08/242134 Financial Business Analyst: [facility] External Provider IMG XR PROCEDURES Edited Result - Final documented in this encounter Visit Diagnoses Not on filedocumented in this encounter Additional Health Concerns Assessment Noted Time PHQ-9 Depression Total Score: 1 12/16/19 23 1:43 PM EDT documented as of this encounter Care Teams Equipment Driver Relationship Specialty Start Date End Date Sabra Tapia MD [address] [place] [address] PCP - General Internal Medicine 01/30/23 documented as of this encounter
[2024-10-12 11:41] VITALS: BP 116/86; PULSE 70; RESP 19; TEMP 36.6; O2SAT 100
== END 2024-10-12 11:41 | disposition home or self-care (01) ==
PROVIDERS: Emergency Provider Emergency Medicine
DX: S42.002D Fracture of unspecified part of left clavicle, subsequent encounter for fracture with routine healing (principal); M25.512 Pain in left shoulder
CPT/HCPCS: 99283

== ENCOUNTER 2024-10-19 15:00 | Outpatient (REF) | payer MEDICAID, SELFPAY ==
--- OUTSIDE RECORDS SUMMARY | 2024-10-20 16:04 | XMS_ITS | Clinical Summary ---
Author Organization [employer] Address [address] [place] [address] Care Team Providers Care Head Shipper Name Role Phone Sabra Tapia MD Primary Care Pro vider Allergies No known active allergies Medications No known medications Active Problems Problem Noted Date Diagnosed Date Health care maintenance 12/15/2022 Tobacco use 12/15/2022 Neck pain 12/15/2022 Overweight (BMI 25.0-29.9) 12/15/2022 Encounters Date Type Department Care Team Description 10/08/2024 Orders Only [facility] External Provider, [facility] from Last 3 Months Family History [...] of 3 - 19+ 3-dose series) 2005 SDOH Screening 12/09/2023 12/08/2022 Depression Screening 12/16/2023 12/15/2022, 12/15/2022 Tobacco Screening 12/16/2023 12/15/2022 COVID-19 Vaccine (1 - 2023-2 5 season) 2024 Influenza Vaccine (#1) 2024 Zoster Vaccines (1 [...] PM EDT Narrative 10/08/2024 10:56 PM EDT [address] [address] XRay Report Signed Patient: Devin Waldrop MR#: [id number] : 1985 Acct:[id number] Age/Sex: 38 / M ADM Date: 10/08/24 Loc: HO.ED Attending Dr: Ordering Physician: Peri Rodríguez Date of Service: 10/08/24 Procedure(s): XR chest 1V Accession Number(s): [id number] cc: Peri Rodríguez; [facility] CLINICAL HISTORY: trauma Exam: AP portable chest [...] in OV> 10/08/242255 DD/ 54 TD/TT: 10/08/242254 Roller Picker: Procedure Note Donotuseinterpreter, Image - 10/08/[address] [address] XRay Report Signed Patient: Devin Waldrop MMR#: [id number] : 1985Acct:[id number] Age/Sex: 38 / MADM Date: 10/08/24 Loc: HO.ED Attending Dr: Ordering Physician: Peri Rodríguez Date of Service: 10/08/24 Procedure(s): XR chest 1V Accession Number(s): [id number] cc: Peri Rodríguez; [facility] CLINICAL HISTORY: trauma Exam: AP portable chest [...] in OV> 10/08/242255 DD/ 54 TD/TT: 10/08/242254 Roller Picker: [facility] External Provider IMG XR PROCEDURES Edited Result - Final * CT Head w/o Contrast (10/08/2024 10:19 PM EDT) Anatomical Region Laterality Modality Head, Neck Computed Tomogra phy 10/08/2024 10:1 9 PM EDT Narrative 10/08/2024 10:20 PM EDT [place] [address] CT Scan Report Signed Patient: Devin Waldrop MR#: [id number] : 1985 Acct:[id number] Age/Sex: 38 / M ADM Date: 10/08/24 Loc: HO.ED Attending Dr: Ordering Physician: Lizet Acevedo Date of Service: 10/08/24 Procedure(s): CT head/brain wo IV con Accession Number(s): [id number] cc: [facility]; Lizet Acevedo Report Number: [id number]: Total DLP = 760.00 mGy-cm CLINICAL HISTORY: [...] in OV> 10/08/242219 DD/ 18 TD/TT: 10/08/242218 Roller Picker: Procedure Note Donotuseinterpreter, Image - 10/08/[address] [place] [address] [address] Scan Report Signed Patient: Devin Waldrop MMR#: [id number] : 1985Acct:[id number] Age/Sex: 38 / MADM Date: 10/08/24 Loc: HO.ED Attending Dr: Ordering Physician: Lizet Acevedo Date of Service: 10/08/24 Procedure(s): CT head/brain wo IV con Accession Number(s): [id number] cc: [facility]; Lizet Acevedo Report Number: [id number]: Total DLP = 760.00 mGy-cm CLINICAL HISTORY: [...] in OV> 10/08/242219 DD/ 18 TD/TT: 10/08/242218 Roller Picker: [facility] External Provider IMG CT PROCEDURES Edited Result - Final * CT Cervical Spine w/o Contrast (10/08/2024 10:16 PM EDT) Anatomical Region Laterality Modality Spine, C-spine Computed Tomogra phy 10/08/2024 10:1 6 PM EDT Narrative 10/08/2024 10:17 PM EDT [place] [address] CT Scan Report Signed Patient: Devin Waldrop MR#: [id number] : 1985 Acct:[id number] Age/Sex: 38 / M ADM Date: 10/08/24 Loc: HO.ED Attending Dr: Ordering Physician: Lizet Acevedo Date of Service: 10/08/24 Procedure(s): CT cervical spine wo IV con Accession Number(s): [id number] cc: [facility]; Lizet Acevedo Report Number: [id number]: Total DLP = 494.00 mGy-cm CLINICAL HISTORY: [...] OV> 10/08/242216 DD/ 15 TD/TT: 08/23/25 2216 Roller Picker: Procedure Note Donotuseinterpreter, Image - 10/08/[address] [address] [address] Scan Report Signed Patient: Devin Waldrop [facility]#: [id number] : 1985Acct:[id number] Age/Sex: 38 / MADM Date: 10/08/24 Loc: HO.ED Attending Dr: Ordering Physician: Lizet Acevedo Date of Service: 10/08/24 Procedure(s): CT cervical spine wo IV con Accession Number(s): [id number] cc: [facility]; Lizet Acevedo Report Number: [id number]: Total DLP = 494.00 mGy-cm CLINICAL HISTORY: [...] in OV> 10/08/242216 DD/ 15 TD/TT: 10/08/242215 Roller Picker: us [facility] External Provider IMG CT PROCEDURES Edited Result - Final * XR Clavicle Left (10/08/2024 9:35 PM EDT) Anatomical Region Laterality Modality Body, Clavicle Left Radiographic Anai ging 10/08/2024 9:35 PM EDT Narrative 10/08/2024 9:36 PM EDT [address] [address] XRay Report Signed Patient: Devin Waldrop#: MM [id number] : 1985 Acct:[id number] Age/Sex: 38 / M ADM Date: 10/08/24 Loc: HO.ED Attending Dr: Ordering Physician: Lizet Acevedo Date of Service: 10/08/24 Procedure(s): XR clavicle LT Accession Number(s): [id number] cc: [facility]; Lizet Acevedo CLINICAL HISTORY: fall off scooter [...] in OV> 10/08/242135 DD/ 34 TD/TT: 10/08/242134 Roller Picker: Procedure Note Alanna Puri - 10/08/2024 [place] [address] XRay Report Signed Patient: Devin Waldrop MMR#: [id number] : 1985Acct:[id number] Age/Sex: 38 / MADM Date: 10/08/24 Loc: HO.ED Attending Dr: Ordering Physician: Lizet Acevedo Date of Service: 10/08/24 Procedure(s): XR clavicle LT Accession Number(s): [id number] cc: [facility]; Lizet Acevedo CLINICAL HISTORY: fall off scooter [...] Hodge MD Signed By: <Electronically signed by Jsoe R Hodge MD in OV> 10/08/242135 DD/ 34 TD/TT: 10/08/242134 Roller Picker: [facility] External Provider IMG XR PROCEDURES Edited Result - Final from Last 3 Months Insurance [facility] C[facility] [employer] Care Teams Head Shipper Relationship Specialty Start Date End Date Sabra Tapia MD [address] [place] [phone] PCP - General Internal Medicine 01/30/23
--- OUTSIDE RECORDS SUMMARY | 2024-10-20 16:04 | XMS_ITS | Clinical Summary ---
Author Organization [facility] Address [address] [address] Phone Care Team Providers Care Credit Risk Analytics Manager Name Role Phone Pcp, Unknown Primary Care [...] topic Medical Devices Not on file Insurance [employer] PPO [employer] PPO [employer] [place] [address] [place] [address] PPO Care Teams Credit Risk Analytics Manager Relationship Specialty Start Date End Date Pcp, Unknown PCP - General 11/18/23 Additional Source Comments The information contained in this document represents components of the legal health record. It is not the complete legal health record.[facility]
== END 2024-10-19 15:01 | disposition home or self-care (01) ==
LOC: HO.HOSX 15:00
PROVIDERS: Visit Provider Physician Assistant
DX: Z13.89 Encounter for screening for other disorder (principal)